=== PATIENT | female | born 1945 | race African-American/Black ===

== ENCOUNTER 2017-10-20 11:41 | Day surgery (SDC) | payer MEDICARE ==
[~2017-10-20 11:41] MED LIST: GARAMYCIN ONE; TOBRADEX ONE; XYLOCAINE 1%/ EPI 1:100,000 INFILTRATI ONE
[2017-10-20] MEDS ORDERED: TETRACAINE 0.5% OD SCH (12:37)
[2017-10-20] MEDS: VIGAMOX OD SCH ×3 (12:47→12:58)
--- NOTE | 2017-10-20 12:50 | Anesthesia Day of Surgery ---
Anesthesia Day of Surgery - Day of Surgery Patient Examined: Yes Patient H&P Reviewed: Yes Patient is NPO: Yes
--- NOTE | 2017-10-20 12:50 | Anesthesia Consultation ---
Anesthesia Consult and Med Hx Date of service: 10/20/17 - Airway Anesthetic Teeth Evaluation: Poor ROM Head & Neck: Adequate Mental/Hyoid Distance: Adequate Mallampati Class: Class I Intubation Access Assessment: Good - Pulmonary Exam CTA: Yes - Cardiac Exam Cardiac Exam: RRR - Pre-Operative Health Status ASA Pre-Surgery Classification: ASA2 Proposed Anesthetic Plan: MAC - Additional Comments Anesthesia Medical History Comments: h/o HTN, HLD- not on meds anymore
[2017-10-20] MEDS ORDERED: SUBLIMAZE ONE (14:38)
[2017-10-20] MEDS ORDERED: VERSED ONE (14:50)
[2017-10-20] MEDS ORDERED: XYLOCAINE 1% MPF 5 mL INFILTRATI ONE (15:22)
[2017-10-20] MEDS ORDERED: DECADRON ONE (15:49)
[2017-10-20] MEDS ORDERED: ANCEF ONE (15:49)
[2017-10-20] MEDS ORDERED: NACL P/F VIAL (10 ML) 20 ML ONE (15:50)
--- NOTE | 2017-10-20 16:03 | Operative Report ---
Operative Report Operative Report: PATIENT NAME: DATE OF : DATE OF SURGERY: 10/20/2017 PREOPERATIVE DIAGNOSIS: Pseudophakic bullous keratopathy, Salsman nodules and neovascularization righteye POSTOPERATIVE DIAGNOSIS: Same OPERATIVE PROCEDURE: 1. Endothelial keratoplasty and anterior lamellar keratoplasty, right eye SURGEON: Ciara Wesley MD HAND STRAIGHTENER SURGEON: None ANESTHESIA: Monitored anesthesia care in combination with topical and intracameral anesthesia because of the established specific risk of reflux, arrhythmias, or anxiety attacks associated with ocular manipulation, as well as the difficulty of the intake nurse to manage such potentially catastrophic events while simultaneously attempting to complete the surgical procedure and was deemed necessary for the patient's safety to have an anesthesiologist was present during the procedure whenever possible. The anesthesiologist was utilized to regulate the intravenous sedation of the patient so the patient was cooperative yet not asleep in order for the patient to successfully maintain fixation of the eye on the operating light of the microscope. COMPRESSOR REPAIRER: COMPLICATIONS: None ALLERGIES: [No known drug allergies] PROGNOSIS: Excellent INDICATIONS FOR SURGERY: The patient is undergoing surgery with the hope of eliminating or improving these visual difficulties. OPERATIVE REPORT: The patient was taken into the preoperative area and evaluated medically and found from a systemic standpoint to be suitable for the planned surgery and anesthesia. The patient was then sedated and monitored by anesthesia. The patient was next taken into the operating room where they were positioned on the operating bed. They were given drops of topical anesthetic in the operative eye. Betadine was used to scrub the periorbital area, eyelids, adjacent cheek and forehead. The prepped area was dried with sterile gauze. The patient was draped, and a wire speculum was placed between the eyelids. The horizontal diameter of the cornea was measured with calipers to assist in determining the proper sizing of the trephination blade to be used for donor incision. PREPARATION OF DONOR TISSUE: Prior to surgery, the donor tissue was inspected and found to be adequate for the planned procedure. The involved eye bank provided the usual demographic information on the donor including age, cause of , necessary screening and blood work. The results were negative regarding possible transmission of diseases from the donor. Our inspection of the donor tissue showed no gross abnormalities. The patients donor cornea was prepared by the eye bank to separate the anterior and posterior portions of the cornea for the planned surgery. This was done with a microkeratome and the anterior cap of tissue was placed back on the cornea and it was removed from the artificial anterior chamber and placed in the Optisol storage solution and sent to us for transplantation. Gentian amber kennedy were placed on the epithelial, or anterior surface of the corneal cap side of the tissue for identification. The cornea was inspected prior to surgery and found to be suitable and at the time of surgery was taken out of the storage solution and carefully centered on the cutting block with the centration based on the centration omar that was made the eye bank on the external surface of the cornea-the stromal side. The donor tissue was removed from the tissue storage container by carefully removing it with forceps taking care not to touch the endothelial surface but only the scleral rim Suction was applied, the centration was rechecked to make sure it was perfectly centered. Once the size of the appropriate trephine was determined, the donor was punched with the trephine. The donor cornea was then covered with tissue storage solution and put aside for use later in the surgical procedure. PREPARATION OF THE RECIPIENT CORNEA: Attention was now directed to the patient s eye. My political science research assistant had been applying topical anesthetic consisting of both drops and cellulose sponges soaked in 2% Xylocaine with epinephrine. The speculum had already been placed between the eyelids and the eye prepped and draped in my usual manner with Betadine solution prior to the starting the surgery. The horizontal corneal diameter was measured and the overall condition of the eye was evaluated to determine which size of trephine would best provide for as large donor button as possible without compromising the angle structures or iris. Once the trephine size was chosen, it was used lightly to omar the epithelium on the corneal surface to provide a reference for later placement of the donor tissue and for removal of Descemets membrane. This was the same trephine used to punch the donor tissue. A 5mm incision was made temporally After the side port incision was made. A 23-gauge needle hooked up to an infusion of balanced salt solution was inserted through the midperipheral cornea into the anterior chamber. This was used to maintain the anterior chamber while removing Descemets membrane. Funnel: The donor tissue was removed from the cutting block and transferred to the operative field. It was placed on the patients cornea so that the endothelium of the donor was facing up. The tissue storage solution and any blood or other material was allowed to flow off the donor tissue. A small amount of viscoelastic was then placed on the endothelial surface of the donor. Two forceps were then used to grasp an edge of the donor taking care not to actually touch the endothelium and the posterior portion of the donor, which had been previously dissected on the artificial anterior chamber, and the donor gently partially pulled apart about half of the posterior portion from the anterior portion. A Busin Funnel was brought into the operative field and the posterior portion of the donor was pulled onto it. Intraocular forceps were used to pull the tissue into the funnel, essentially making it fold over on itself endothelial side inward. The intraocular forceps were then introduced through a previously made peripheral corneal stab incision in the nasal cornea. The forceps were moved across the anterior chamber to the area of the 5.0 mm incision. The Busin funnel was inserted into the 5.0 mm wound. The forceps grasped the edge of the donor tissue and the tissue was pulled into the eye. Once inside the eye, the forceps released their hold and the funnel was removed. Using a 30-gauge needle, a small stab incision was made in the peripheral cornea and a small amount of air was injected within the folded-over piece of donor tissue in the eye. The air was slowly injected to unfold the donor endothelial side down. Once the donor had unfolded, the anterior chamber was completely filled with air. A Pradip roller was used to massage the anterior surface of the cornea and to massage the donor tissue into the correct position. The massaging also helped to remove retained air or fluid caught between the donor and recipient tissue. Once the donor was in the correct position and no retained fluid or air was present between the donor and recipient, the timer was started and the anterior chamber was left completely filled with air for the designated time. OTHER SPECIFICS OF THE SURGICAL PROCEDURE: Trephine size: 8 mm Horizontal corneal diameter: 11 mm Estimated thickness of donor tissue: 50micron Time anterior chamber was completely filled with air in the operating room while the donor cornea was allowed to hold in position without any manipulation or massaging: eight minutes The patient laid face up and flat in the recovery room with a partial air bubble to help with further adherence of the donor cornea to the recipient cornea for the following length of time: 45 minutes MEDICATIONS APPLIED AT END OF SURGERY: 8mg of decadron and 1 gm of ancef ADDITIONAL NOTES: DISCHARGE SUMMARY: The patient was released in stable condition. The patient and those with the patient were given a written sheet of postoperative instructions and counseling on any abnormal laboratory studies. The patient is to call immediately for difficulties and will otherwise see us in the morning at the office. Ciara Wesley M.D. Date cc: Dictated: Worksheets: Transcribed:
--- NOTE | 2017-10-20 16:06 | Short Stay Summary ---
Short Stay Documentation Date of service: 10/20/17 - History H&P: obtained from office - Allergies and Medications Current Medications: Allergies No Known Allergies Allergy (Unverified 10/20/17 12:35) Active Medications Moxifloxacin HCl (Vigamox) 1 drops OD Q5MIN [facility] Stop: 10/22/17 13:01 Last Admin: 10/20/17 12:58 Dose: 1 drops Prednisolone Acetate (Pred Forte 1%) 1 drops OD QID KALR - Brief post op/procedure progress note Date of procedure: 10/20/17 Pre-op diagnosis: pseudophakic bullous keratopathy Qu[place] nodules Post-op diagnosis: same Procedure: Endotracheal keratoplasty in anterior lamellar keratoplasty right eye Anesthesia: MAC, local Surgeon: JOSE MCDONALD Estimated blood loss: minimal Pathology: none Condition: stable - Disposition Condition at discharge: Good Disposition: DC-01 TO HOME OR SELFCARE - Discharge Diagnoses (1) Bullous keratopathy of right eye Status: Resolved (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
[2017-10-20 16:39] VITALS: BP 132/78
--- NOTE | 2017-10-20 17:25 | Post Anesthesia Evaluation ---
- Post Anesthesia Evaluation Patient Participated: Yes Airway Patent: Yes Stable Respiratory Function: Yes Nausea/Vomiting: No Temp > 96.8F: Yes Pain Manageable: Yes Adequeate Hydration: Yes Anesthesia Complications: No Block Receding Appropriately: Not Applicable Patient on Ventilator: No
[2017-10-20] MEDS ORDERED: PRED FORTE 1% OD SCH (18:00)
== END 2017-10-20 17:05 | disposition home or self-care (01) ==
LOC: OR 11:41
DX: H18.451 Nodular corneal degeneration, right eye (principal); H18.11 Bullous keratopathy, right eye; H16.401 Unspecified corneal neovascularization, right eye; G43.909 Migraine, unspecified, not intractable, without status migrainosus; I10 Essential (primary) hypertension; E78.5 Hyperlipidemia, unspecified
CPT/HCPCS: 65710; 65756; 87075; 87116; J0690; J1100; J2250; J3010; J1580; V2785

== ENCOUNTER 2017-11-03 11:44 | Day surgery (SDC) | payer MEDICARE ==
[~2017-11-03 11:44] MED LIST changes: +XYLOCAINE 2%/ EPI 1:50,000 (DENTAL) INFILTRATI ONE
[2017-11-03] MEDS ORDERED: VERSED ONE (12:47)
[2017-11-03] MEDS ORDERED: SUBLIMAZE ONE ×2 (12:48→13:38)
[2017-11-03] MEDS: TETRACAINE 0.5% OD SCH ×2 (13:01→13:06)
--- NOTE | 2017-11-03 13:03 | Anesthesia Consultation ---
Anesthesia Consult and Med Hx Date of service: 11/03/17 - Airway Anesthetic Teeth Evaluation: Good ROM Head & Neck: Adequate Mental/Hyoid Distance: Adequate Mallampati Class: Class II Intubation Access Assessment: Probably Good - Pulmonary Exam CTA: Yes - Cardiac Exam Cardiac Exam: RRR - Pre-Operative Health Status ASA Pre-Surgery Classification: ASA2 Proposed Anesthetic Plan: General - Pulmonary Hx Smoking: No Hx Asthma: No SOB: No COPD: No Home Oxygen Therapy: No Hx Pneumonia: No - Cardiovascular System Hx Hypertension: No Hx Coronary Artery Disease: No Hx Heart Attack/AMI: No Hx Angina: No Hx Percutaneous Transluminal Coronary Angioplasty (PTCA): No Hx Cardia Arrhythmia: No Hx Pacemaker: No Hx Internal Defibrillator: No Hx Valvular Heart Disease: No Hx Heart Murmur: No Hx Peripheral Vascular Disease: No - Central Nervous System Hx Psychiatric Problems: No - Endocrine Hx Renal Disease: No Hx Cirrhosis: No Hx Liver Disease: No Hx Non-Insulin Dependent Diabetes: No Hx Thyroid Disease: No Hx Hypothyroidism: No Hx Hyperthyroidism: No - Other Systems Hx Alcohol Use: No Hx Substance Use: No Hx Cancer: No
--- NOTE | 2017-11-03 13:04 | Anesthesia Day of Surgery ---
Anesthesia Day of Surgery - Day of Surgery Patient Examined: Yes Patient H&P Reviewed: Yes Patient is NPO: Yes Beta Blockers: No Cardiac Clearance: No Pulmonary Clearance: No
[2017-11-03] MEDS: VIGAMOX OD SCH ×2 (13:05→13:10)
[2017-11-03] MEDS ORDERED: TORADOL IV PRN (13:06)
[2017-11-03] MEDS ORDERED: VERSED IV ONE (13:38)
[2017-11-03] MEDS ORDERED: NACL 0.9% 1000 ML 1,000 ML IV SCH (14:00)
[2017-11-03] MEDS ORDERED: PRED FORTE 1% OS SCH (14:00)
[2017-11-03] MEDS ORDERED: XYLOCAINE MPF 1% INFILTRATI ONE (14:45)
[2017-11-03] MEDS ORDERED: VISION BLUE IO ONE (14:48)
--- NOTE | 2017-11-03 15:21 | Operative Report ---
Operative Report Operative Report: DATE OF SURGERY: 11/03/2017 PREOPERATIVE DIAGNOSIS: Dislocated endothelial GRAFT right eye POSTOPERATIVE DIAGNOSIS: SAME PROPOSED PROCEDURE: Air injection and bubbling of graft right eye SURGEON: Ciara Wesley MD MORTAR MAKER SURGEON: [] ANESTHESIA: Monitored anesthesia care in combination with topical and intracameral anesthesia because of the established specific risk of reflux, arrhythmias, or anxiety attacks associated with ocular manipulation, as well as the difficulty of the diamond assorter to manage such potentially catastrophic events while simultaneously attempting to complete the surgical procedure and was deemed necessary for the patient's safety to have an anesthesiologist was present during the procedure whenever possible. The anesthesiologist was utilized to regulate the intravenous sedation of the patient so the patient was cooperative yet not asleep in order for the patient to successfully maintain fixation of the eye on the operating light of the microscope. COMPLICATIONS: None ALLERGIES: [No known drug allergies] PREOPERATIVE NOTE: The patient is a lady who had a D6 surgery done about 2 weeks ago. An exam in the office she was noted to have a dislocated graft. I attempted to bubbles across the description but was unable to do so because of his visualization as well as the fact that the graft migrated inferiorly. The patient and her family is aware of the fact that because the cornea so hazy due to high likelihood that she will need a full corneal transplant. The idea was to proceed with a partial transplant because the healing only takes about a month versus a full, transplant that takes about 2 years to heal. 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 It also allows a larger than average surface area of transplanted endothelium which hopefully in the long run will allow for longer endothelial viability and success for the surgery. It also provides for faster visual recovery and less anisometropia than previous keratoplasty techniques. It is technically more difficult because of the complicated preparation of the donor tissue and insertion of the donor tissue into the anterior chamber with fixation of the tissue without direct suturing of the donor. This also provides an increased chance of dislocation of the donor tissue in the immediate postoperative period compared to standard keratoplasty techniques. This type of corneal transplant takes over twice as long as a standard corneal transplant. Moreover, the preparation and end of surgery are more time consuming for both the surgeon and staff: the blocking of the eye requires a longer setup time as noted, the procedure itself is more complex, and the patient needs to lay face up and flat in the recovery area for a specified period of time prior to discharge. Preoperatively, it was discussed with the patient that they could have either a standard corneal transplant or a variation of a penetrating keratoplasty where only the posterior layers of the cornea are transplanted. With this new technique, as with any corneal transplant, there is always the possibility that the surgery may need to be repeated; or, in this case, also repeated with a standard corneal transplant if the visual result is not satisfactory. However, some of the advantages of this current technique are much more rapid visual recovery and a tectonically stronger eye after surgery. The patient was taken to the operating room and laid supine eye was prepped and draped in standard intraocular surgery. Speculum was placed into the eye it was noted that the cornea was even more hazy deny previous visit. I injected some trypan blue inside the anterior chamber to help with visualization of the graft. These did not help much at a point just elected to put some air as well as BSS into the eye. Patient tolerated the procedure well she was taken to recovery room eye which point I will discuss the need for a GLADYS Blandon patient as well as family members
--- NOTE | 2017-11-03 15:23 | Short Stay Summary ---
Short Stay Documentation Date of service: 11/03/17 - History H&P: obtained from office - Allergies and Medications Current Medications: Allergies No Known Allergies Allergy (Verified 10/31/17 16:38) Home Medications Medication Instructions Recorded Confirmed Last Taken Type Unobtainable 10/31/17 10/31/17 Unknown History Active Medications Sodium Chloride (Nacl 0.9% 1000 Ml) 1,000 mls @ 75 mls/hr IV DIRECT KARL Ketorolac Tromethamine (Toradol) 15 mg IV ONCE PRN PRN Reason: Pain, Mild (1-3) Moxifloxacin HCl (Vigamox) 1 drops OD Q5MIN [facility] Stop: 11/05/17 13:01 Last Admin: 11/03/17 13:10 Dose: 1 drops Prednisolone Acetate (Pred Forte 1%) 1 drops OD QID KAR[facility] Tetracaine HCl (Tetracaine 0.5%) 1 drops OD ONCE KARL Last Admin: 11/03/17 13:06 Dose: 1 drops - Brief post op/procedure progress note Date of procedure: 11/03/17 Pre-op diagnosis: dislocated DSEAK graft right eye Post-op diagnosis: same Procedure: REbubbling of dislocated graft right eye Anesthesia: MAC, local Surgeon: JOSE MCDONALD Estimated blood loss: none Pathology: none Condition: stable - Disposition Condition at discharge: Good Disposition: DC-01 TO HOME OR SELFCARE - Discharge Diagnoses (1) Dislocated Descemet's stripping endothelial keratoplasty (DSEK) graft Status: Acute (2) 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 Follow up with: SASHA ESCALANTE MD [Primary Care Provider] - 7 Days Forms: Outpatient Surgery DC Inst.
[2017-11-03] MEDS ORDERED: PRED FORTE 1% OD SCH (15:40)
[2017-11-03 15:52] VITALS: BP 141/86
== END 2017-11-03 15:45 | disposition home or self-care (01) ==
LOC: OR 11:44
DX: T85.328A Displacement of other ocular prosthetic devices, implants and grafts, initial encounter (principal); Y83.2 Surgical operation with anastomosis, bypass or graft as the cause of abnormal reaction of the patient, or of later complication, without mention of misadventure at the time of the procedure
CPT/HCPCS: 66020; J2250; J3010; J1580

== ENCOUNTER 2017-11-17 12:15 | Day surgery (SDC) | payer MEDICARE ==
[~2017-11-17 12:15] MED LIST changes: -GARAMYCIN ONE; +KENALOG-40 ONE; +LACTATED RINGERS 1,000 ML IV SCH; +TETRACAINE 0.5% OD PRN; +TOBRADEX OD ONE; -TOBRADEX ONE; +VERSED IV NR; -XYLOCAINE 1%/ EPI 1:100,000 INFILTRATI ONE; -XYLOCAINE 2%/ EPI 1:50,000 (DENTAL) INFILTRATI ONE
--- NOTE | 2017-11-17 14:14 | Anesthesia Consultation ---
Anesthesia Consult and Med Hx Date of service: 11/17/17 - Airway Anesthetic Teeth Evaluation: Poor, Dentures ROM Head & Neck: Adequate Mental/Hyoid Distance: Adequate Mallampati Class: Class II Intubation Access Assessment: Probably Good - Pulmonary Exam CTA: Yes - Cardiac Exam Cardiac Exam: RRR - Pre-Operative Health Status ASA Pre-Surgery Classification: ASA2 Proposed Anesthetic Plan: General, MAC - Pulmonary Hx Smoking: No Hx Asthma: No SOB: No COPD: No Hx Pneumonia: No - Cardiovascular System Hx Hypertension: No Hx Coronary Artery Disease: No Hx Heart Attack/AMI: No - Gastrointestinal Hx Gastroesophageal Reflux Disease: Yes
--- NOTE | 2017-11-17 14:14 | Anesthesia Day of Surgery ---
Anesthesia Day of Surgery - Day of Surgery Patient Examined: Yes Patient H&P Reviewed: Yes Patient is NPO: Yes
[2017-11-17] MEDS: VIGAMOX OD SCH ×3 (14:25→14:35)
[2017-11-17] MEDS ORDERED: DIPRIVAN 10 MG/ML IV ONE (17:48)
[2017-11-17] MEDS ORDERED: SUBLIMAZE ONE (17:48)
[2017-11-17] MEDS ORDERED: TOBRADEX ONE (17:48)
[2017-11-17] MEDS ORDERED: XYLOCAINE MPF 2% ONE (17:49)
[2017-11-17] MEDS ORDERED: WATER FOR IRRIG STERILE IR ONE (18:39)
[2017-11-17] MEDS ORDERED: ANCEF ONE (18:50)
[2017-11-17] MEDS ORDERED: DECADRON ONE (18:50)
[2017-11-17] MEDS ORDERED: KENALOG-40 IM ONE (19:00)
[2017-11-17] MEDS ORDERED: TOBRADEX OD ONE (19:18)
[2017-11-17] MEDS ORDERED: ZOFRAN ONE (19:18)
--- NOTE | 2017-11-17 19:40 | Operative Report ---
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 That attempt was unsuccessful so we decided to proceed with a full cornea transplant. Patient was taken to operating room and laid supine eye was prepped and draped. End intraocular surgery after she had general anesthesia administered. Cornea white to white was measured at 10.25 mm so decided to put an 8.25 corneal graft. Attention was turned to the donor tissue which was punch using a [place] trephine. Box were placed onto the cornea follow-up by the use of the same trephine to create full trephination of the cornea. Supersharp was used to make an incision performed into the cornea followed by injection of viscoelastic. Supersharp was then used to make an incision into the cornea then right and left corneal scissors were used to remove corneal button. Viscoelastic was placed into the anterior chamber. Donor cornea was reinspected BSS and brought into the field sutures were placed using 10-0 nylon sutures. All the sutures were rotated BSS was injected into the chamber wound was found to be watertight. Kenalog as well as gentamicin were injected subconj. Patient also received 8 of Decadron and 1 g of Ancef IV. Pressure patch was placed onto the eye after application of TobraDex ointment. She was extubated without proper manner was taken to recovery room in stable condition
--- NOTE | 2017-11-17 19:43 | Short Stay Summary ---
Short Stay Documentation Date of service: 11/17/17 - History H&P: obtained from office - Allergies and Medications Current Medications: Allergies No Known Allergies Allergy (Verified 11/16/17 11:30) Home Medications Medication Instructions Recorded Confirmed Last Taken Type Bromfenac Sodium [Bromsite] 1 drops OD BID 11/17/17 11/17/17 11/16/17 History Moxifloxacin HCl [Vigamox 0.5%] 1 drop OD QID 11/17/17 11/17/17 11/16/17 History prednisoLONE ACETATE [Pred Forte] 1 drop OD QID 11/17/17 11/17/17 11/16/17 History Active Medications Lactated Ringer's (Lactated Ringers) 1,000 mls @ 100 mls/hr IV DIRECT KARL Last Admin: 11/17/17 17:47 Dose: 100 mls/hr Midazolam HCl (Versed) 2 mg IV PREOP NR Stop: 11/17/17 23:59 Moxifloxacin HCl (Vigamox) 1 drops OD Q5MIN [facility] Stop: 11/17/17 23:59 Last Admin: 11/17/17 14:35 Dose: 1 drops Tetracaine HCl (Tetracaine 0.5%) 1 drops OD Q5M PRN PRN Reason: Analgesia Stop: 11/17/17 23:59 Last Admin: 11/17/17 14:25 Dose: 1 drops - Brief post op/procedure progress note Date of procedure: 11/17/17 Pre-op diagnosis: corneal scarring as well as felt corneal transplant right eye Post-op diagnosis: same Procedure: Penetrating keratoplasty right eye Anesthesia: GETA Surgeon: JOSE MCDONALD Estimated blood loss: minimal Pathology: list (cornea button, donor graft) Specimen disposition: to lab Condition: stable - Disposition Condition at discharge: Good Disposition: DC-01 TO HOME OR SELFCARE - Discharge Diagnoses (1) Corneal scar, right eye Status: Resolved (2) Dislocated Descemet's stripping endothelial keratoplasty (DSEK) graft Status: Resolved Qualifiers: Encounter type: subsequent encounter Short Stay Discharge Plan Follow up with: SASHA ESCALANTE MD [Primary Care Provider] - 7 Days
[2017-11-17 21:53] VITALS: BP 153/78
== END 2017-11-17 20:20 | disposition home or self-care (01) ==
LOC: OR 12:15
DX: T86.841 Corneal transplant failure (principal); H17.9 Unspecified corneal scar and opacity; K21.9 Gastro-esophageal reflux disease without esophagitis; Y83.2 Surgical operation with anastomosis, bypass or graft as the cause of abnormal reaction of the patient, or of later complication, without mention of misadventure at the time of the procedure
CPT/HCPCS: 65730; 87075; 87116; 88304; J0690; J1100; J2405; J2704; J3010; J3301; J7120; V2785